=== PATIENT | female | born 1995 | race Caucasian/White ===

== ENCOUNTER → 2017-07-17 15:13 | Outpatient (CLI) | payer MEDICAID, SELFPAY ==
--- NOTE | 2017-07-17 15:31 | US_ITS ---
STUDY: RENAL ULTRASOUND - COMPLETE REASON FOR EXAM: Female, 21 years old. Flank pain. TECHNIQUE: Ultrasound evaluation of the kidneys was performed with real-time and static omalley-scale imaging. COMPARISON: CT scan 09/07/2014. FINDINGS: RIGHT KIDNEY: Normal location of the right kidney, which is normal in size. The right kidney measures 10.6 x 5.5 x 4.9 cm. There is a normal cortex of the right kidney. The renal cortex measures 2.4 cm. There is no right renal mass or cyst. There are no right renal calculi. There is no right hydronephrosis. DISTAL RIGHT URETER: There is non-visualization of the distal right ureter. There is no demonstrated right ureterovesical junction calculus. There is no demonstrated right ureteral jet. LEFT KIDNEY: Normal location of the left kidney, which is normal in size. The left kidney measures 12.6 x 5.5 x 4.9 cm. There is a normal cortex of the left kidney. The renal cortex measures 1.9 cm. There is no left renal mass or cyst. There are no left renal calculi. There is no left hydronephrosis. DISTAL LEFT URETER: There is non-visualization of the distal left ureter. There is no demonstrated left ureterovesical junction calculus. There is no demonstrated left ureteral jet. BLADDER: The urinary bladder has a volume of 35 ml. The empty urinary bladder has a volume of 1 ml. There is a normal wall thickness of the distended urinary bladder. There is no demonstrated mass within the urinary bladder. There are no demonstrated bladder calculi. Cholelithiasis is noted. US/Kidney and Bladder IMPRESSION: Normal ultrasound of the kidneys. Incompletely distended and suboptimally evaluated bladder. Cholelithiasis. Electronically Signed: Elvin Dominguez MD at 16:30 EST , Service support ,
== END ==
DX: K80.20 Calculus of gallbladder without cholecystitis without obstruction (principal); Z87.442 Personal history of urinary calculi
CPT/HCPCS: 76770

== ENCOUNTER → 2020-11-16 12:03 | Outpatient (CLI) | payer OTHER, SELFPAY ==
[2017-01-13 23:43] VITALS: BMI 38.9
[2020-11-16 12:49] LABS: Absolute Lymphocyte Count 3.21 X10^3/uL (0.83-4.51); Absolute Neutrophil Count 8.1 X10^3/uL (2.0-7.7); Basophil# 0.09 X10^3/uL; Basophil% 0.7 % (0-1); Eosinophil# 0.26 X10^3/uL; Eosinophils% 2.1 % (0-5); Hematocrit 45.6 % (37-47); Hemoglobin 15.4 g/dL (12.0-15.0); Lymphocyte # 3.21 X10^3/ul (0.83-4.51); Lymphocyte % 26.3 % (19-41); Mean Corp Hgb Conc 33.8 g/dL (32-36); Mean Corpuscular Hgb 28.8 pg (27.0-32.0); Mean Corpuscular Volume 85.4 fL (81-99); Mean Platelet Vol. 10.3 fl (6.2-12.0); Monocyte# 0.52 X10^3/uL; Monocyte% 4.3 % (0-10); NRBC Flagged by Analyzer 0 % (0-5); Neutrophil # 8.11 X10^3/uL (2.7-7.7); Neutrophil % 66.4 % (47-70); Platelet Count 327 K/mm3 (150-450); RBC Distribution Width CV 12.1 % (11.6-14.6); RBC Distribution Width SD 37.5 fl (35.1-43.9); Red Blood Count 5.34 M/mm3 (4.2-5.4); White Blood Count 12.2 K/mm3 (4.4-11.0)
[2020-11-16 13:05] LABS: AST(SGOT) 45 U/L (15-37); Alanine Aminotransfer ALT/SGPT 93 U/L (13-56); Alkaline Phosphatase 73 U/L (45-117); Anion Gap 8 (5-15); BUN 9 mg/dL (7-18); BUN/Creat Ratio 11.8 RATIO (10-20); Calcium,Total 9.1 mg/dL (8.5-10.1); Chloride 106 mmol/L (98-107); Creatinine, Serum 0.76 mg/dL (0.55-1.02); EST Glomerular Filtration Rate 97 mL/min (>60); Est Glom Filt Rate - Afr Amer 118 mL/min (>60); Glucose 89 mg/dL (74-106); Potassium 3.9 mmol/L (3.5-5.1); Sodium Level 139 mmol/L (136-145)
[2020-11-16 13:24] LABS: Hepatitis B Surface Antigen Non-Reactive (Nonreactive)
[2020-11-18 15:00] LABS: HIV-1 RNA by PCR, Quant. < 20 copies/mL (.)
[2020-11-22 12:08] LABS: Comment 1a (.)
[2020-11-22 13:26] LABS: Hepatitis B Core Ab Total Positive (Negative)
== END ==
PROVIDERS: Referring Provider Internal Medicine Infectious Disease; Visit Provider Internal Medicine Infectious Disease
DX: B18.2 Chronic viral hepatitis C (principal)
CPT/HCPCS: 36415; 80053; 85025; 86704; 87340; 87536; 87902

== ENCOUNTER 2020-12-06 06:55 | Emergency (ER) | payer OTHER, SELFPAY ==
[2020-12-06 06:56] VITALS: BP 142/79; PULSE 109; RESP 16; TEMP 36.8; O2SAT 99; BMI 44.4
--- NOTE | 2020-12-06 07:15 | ED.VIS.FEGU ---
HPI HPI - Female History of Present Illness Chief Complaint: Vag Bld, Preg Informant: patient Bleeding Issue: Positive for Vaginal bleeding Onset: Today Context: Sudden Onset Timing: Continuous Current Severity: Mild Maximum Severity: Mild Associated Symptoms Associated Symptoms: Negative for Dysuria and Hematuria Test: Positive Sexually: Positive for Active Control: No control P: 1 Ab: 1 Narrative Narrative: Patient presents with vaginal bleeding that began today. Patient states she did have a positive home test. Patient states her last normal menstrual period was 11/02/2020 through 11/09/2020. Patient denies any cramping. Patient states her bleeding is less than her normal menstrual periods. Patient denies any fevers or chills. Patient denies any dysuria or hematuria. Patient does not have an BAG TURNER. PFSH PFSH no medical history Home Medications No Known/Unobtainable [No Known Home Medications] 01/08/17 [History Last Taken Unknown] Allergy/AdvReac Type Severity Reaction Status Date / Time codeine Allergy Anaphylaxis Verified 12/06/20 06:58 no surgical history Social History Smoking Status: Current every day smoker tobacco type: cigarettes ROS ROS ED Constitutional Constitutional ED: Denies chills or fever(s) Eyes Eyes: Denies blurry vision or change in vision ENT ENT ED: Denies rhinorrhea or sore throat Cardiovascular Cardiovascular: Denies chest pain or palpitations Respiratory/Chest Respiratory/Chest: Denies cough or dyspnea Gastrointestinal Gastrointestinal: Denies nausea or vomiting Genitourinary Genitourinary ED: Denies dysuria or hematuria Musculoskeletal Musculoskeletal: Denies back pain or neck pain Integumentary Denies abscess or rash Neurologic Neurologic: Denies headache(s) or weakness Allergic/Immunologic Allergic/Immunologic ED: Denies mouth swelling or urticaria EXAM Physical Exam Const Vital Signs: 12/06/20 06:56 Temperature 98.3 F Temperature Source Oral Pulse Rate 109 H Respiratory Rate 16 Blood Pressure 142/79 H Blood Pressure Mean 100 Pulse Ox 99 Oxygen Delivery Method Room Air Positive well nourished, well developed and obese General Appearance ED: well developed Nutritional Appearance: obese HEENT Reports moist mucous membranes Neck supple and no JVD Resp normal respiratory effort and clear to auscultation bilaterally Cardio regular rate, regular rhythm and no murmurs GI normal to inspection, nondistended, normoactive bowel sounds, soft to palpation and non-tender Palpation: soft Extremity normal to inspection General Extremety ED: Negative for edema or tenderness General Extremity: Negative for edema Neuro oriented x3, CN's II-XII intact bilaterally and no sensory deficits noted Sensorium / Orientation: alert Motor Exam: strength 5/5 throughout Psych mental status grossly normal Skin no rashes or lesions noted MDM MDM MDM Narrative Medical decision making narrative: CBC was within normal limits. Comprehensive metabolic profile was normal. Urinalysis shows occult blood of 150 with 10-25 red blood cells. There is no evidence of urinary tract infection. Quantitative hCG was 2. Patient was advised of her findings. Patient was instructed to follow-up with her primary care physician in 5 to 7 days. Patient understood and was agreeable with the plan. All questions were answered. Lab Data Attestation: I reviewed the patient's lab results. Labs: Laboratory Results - last 24 hr 12/06/20 12/06/20 12/06/20 07:21 07:26 07:26 WBC 9.4 RBC 5.34 Hgb 15.5 H Hct 45.2 MCV 84.6 MCH 29.0 MCHC 34.3 RDW Std Deviation 37.9 RDW Coeff of Raysa 12.4 Plt Count 315 MPV 10.2 Immature Gran % (Auto) 0.400 Neut % (Auto) 51.4 Lymph % (Auto) 35.8 [place] % (Auto) 7.7 Eos % (Auto) 3.5 Baso % (Auto) 1.2 H Absolute Neuts (auto) 4.8 Absolute Lymphs (auto) 3.38 Nucleated RBC % 0 Sodium 138 Potassium 4.2 Chloride 108 H Carbon Dioxide 24.0 Anion Gap 6 BUN 13 Creatinine 0.91 Estim Creat Clear Calc 74.09 Est GFR (MDRD) Af Amer 96 Est GFR (MDRD) Non-Af 79 BUN/Creatinine Ratio 14.3 Glucose 107 H Calcium 9.4 Total Bilirubin 0.40 AST 26 ALT 44 Alkaline Phosphatase 76 Total Protein 7.8 Albumin 3.7 Globulin 4.1 Albumin/Globulin Ratio 0.9 HCG, Quant Urine Color Yellow Urine Clarity Sl. Cloudy Urine pH 6.5 Ur Specific [place] 1.015 Urine Protein Negative Urine Glucose (UA) Normal Urine Ketones Negative Urine Occult Blood 150 H Urine Nitrite Negative Urine Bilirubin Negative Urine Urobilinogen Normal Ur Leukocyte Esterase Negative Urine RBC 10-25 SEEN Urine WBC 0 SEEN Ur Squamous Epith Cells 0-5 SEEN Urine Bacteria 1+ Urine Mucus 0 SEEN 12/06/20 07:26 WBC RBC Hgb Hct MCV MCH MCHC RDW Std Deviation RDW Coeff of Raysa Plt Count MPV Immature Gran % (Auto) Neut % (Auto) Lymph % (Auto) [place] % (Auto) Eos % (Auto) Baso % (Auto) Absolute Neuts (auto) Absolute Lymphs (auto) Nucleated RBC % Sodium Potassium Chloride Carbon Dioxide Anion Gap BUN Creatinine Estim Creat Clear Calc Est GFR (MDRD) Af Amer Est GFR (MDRD) Non-Af BUN/Creatinine Ratio Glucose Calcium Total Bilirubin AST ALT Alkaline Phosphatase Total Protein Albumin Globulin Albumin/Globulin Ratio HCG, Quant 2 Urine Color Urine Clarity Urine pH Ur Specific [place] Urine Protein Urine Glucose (UA) Urine Ketones Urine Occult Blood Urine Nitrite Urine Bilirubin Urine Urobilinogen Ur Leukocyte Esterase Urine RBC Urine WBC Ur Squamous Epith Cells Urine Bacteria Urine Mucus Discharge Plan Triage Chief Complaint: Vag Bld, Preg ED Provider: Ildefonso Lloyd Dx/Rx/DC Orders Clinical Impression: Vaginal bleeding Instructions: ED Dysfunctional Uterine Bleeding Prescriptions: No Action No Known Home Medications RF: 0 Primary Care Provider: Care Physician,No Primary Referrals: Care Physician,No Primary [Primary Care Provider] - 3-5 Days Activity Restrictions/Additional Instructions: Follow-up with your primary care physician or BAG TURNER in 5 to 7 days for reevaluation. Disposition Disposition: Home, Self Care
[2020-12-06 07:26] LABS: Mucous, Urine 0 SEEN /hpf (<or=2+); White Blood Cells 0 SEEN /hpf (0-5)
[2020-12-06 07:39] LABS: Absolute Lymphocyte Count 3.38 X10^3/uL (0.83-4.51); Absolute Neutrophil Count 4.8 X10^3/uL (2.0-7.7); Basophil# 0.11 X10^3/uL; Basophil% 1.2 % (0-1); Eosinophil# 0.33 X10^3/uL; Eosinophils% 3.5 % (0-5); Hematocrit 45.2 % (37-47); Hemoglobin 15.5 g/dL (12.0-15.0); Lymphocyte # 3.38 X10^3/ul (0.83-4.51); Lymphocyte % 35.8 % (19-41); Mean Corp Hgb Conc 34.3 g/dL (32-36); Mean Corpuscular Volume 84.6 fL (81-99); Mean Platelet Vol. 10.2 fl (6.2-12.0); Monocyte# 0.73 X10^3/uL; Monocyte% 7.7 % (0-10); NRBC Flagged by Analyzer 0 % (0-5); Neutrophil # 4.84 X10^3/uL (2.7-7.7); Neutrophil % 51.4 % (47-70); Platelet Count 315 K/mm3 (150-450); RBC Distribution Width CV 12.4 % (11.6-14.6); RBC Distribution Width SD 37.9 fl (35.1-43.9); Red Blood Count 5.34 M/mm3 (4.2-5.4); White Blood Count 9.4 K/mm3 (4.4-11.0)
[2020-12-06 07:51] LABS: Color, Urine Yellow (Yellow); Glucose, Dipstick Normal (Normal); Ketone-Dipstick Negative (Negative); Leukocyte Esterase-Dipstick Negative /ul (Negative); Nitrite-Dipstick Negative (Negative); Occult Blood-Urine 150 /ul (Negative); Protein-Dipstick Negative (Negative); Specific Gravity, Urine 1.015 (1.002-1.030); Urine Bilirubin Dipstick Negative (Negative); Urine Clarity Sl. Cloudy (Clear); Urine Urobilinogen Normal (Normal); Urine pH 6.5 (5.0 - 8.0)
[2020-12-06 07:52] LABS: ALB/GLOB Ratio 0.9 RATIO (0.9-2.4); AST(SGOT) 26 U/L (15-37); Alanine Aminotransfer ALT/SGPT 44 U/L (13-56); Albumin, Serum 3.7 g/dL (3.2-5.0); Alkaline Phosphatase 76 U/L (45-117); Anion Gap 6 (5-15); BUN 13 mg/dL (7-18); BUN/Creat Ratio 14.3 RATIO (10-20); Calcium,Total 9.4 mg/dL (8.5-10.1); Chloride 108 mmol/L (98-107); Creatinine, Serum 0.91 mg/dL (0.55-1.02); EST Glomerular Filtration Rate 79 mL/min (>60); Est Glom Filt Rate - Afr Amer 96 mL/min (>60); Estimated Creatinine Clearance 74.09 ml/min; Globulin 4.1 g/dL (2.2-4.2); Glucose 107 mg/dL (74-106); Potassium 4.2 mmol/L (3.5-5.1); Protein, Total 7.8 g/dL (6.4-8.2); Sodium Level 138 mmol/L (136-145)
[2020-12-06 07:59] LABS: hCG Titer Quant., Serum 2 mIU/mL (1-3)
[2020-12-06 08:00] LABS: Bacteria 1+ /hpf (None Seen); Red Blood Cells-Urine 10-25 SEEN /hpf (0-5); Squamous Epithelial Cells - UA 0-5 SEEN /hpf (5-10)
[2020-12-06 08:11] VITALS: BP 134/66; PULSE 86; RESP 15; O2SAT 99
== END 2020-12-06 08:10 | disposition home or self-care (01) ==
PROVIDERS: Emergency Provider Emergency Medicine
DX: O46.90 Antepartum hemorrhage, unspecified, unspecified trimester (principal); F17.210 Nicotine dependence, cigarettes, uncomplicated; Z3A.00 Weeks of gestation of pregnancy not specified
CPT/HCPCS: 80053; 81001; 84702; 85025; 99283; A4216

== ENCOUNTER → 2020-12-27 15:40 | Outpatient (CLI) | payer OTHER, SELFPAY ==
[2020-12-06 06:56] VITALS: BMI 44.4
[2021-01-02 14:09] LABS: Comment 1a (.); HCV Quant. RNA PCR 150000 IU/mL (.)
[2021-01-02 14:16] LABS: HCV log 10 5.176 (.); Hepatitis A AB, Total Negative (Negative)
== END ==
LOC: LAB 15:41
PROVIDERS: Visit Provider Internal Medicine Infectious Disease
DX: B18.2 Chronic viral hepatitis C (principal)
CPT/HCPCS: 36415; 86708; 87522; 87902

== ENCOUNTER 2021-05-28 16:31 | Outpatient (CLI) | payer OTHER, SELFPAY ==
[2021-05-28 16:59] VITALS: BP 111/74; PULSE 85; RESP 16; TEMP 36.4; O2SAT 99; BMI 43.9
[2021-05-28] MEDS: 0.9% Saline Lock 10 ML Syringe IV (17:06)
[2021-05-28 17:51] VITALS: BP 117/68; PULSE 82; RESP 16; TEMP 37; O2SAT 100
[2021-05-28 18:39] VITALS: BP 101/63; PULSE 80; RESP 16; TEMP 37; O2SAT 98
== END 2021-05-28 18:44 | disposition home or self-care (01) ==
LOC: MS3OUT 16:31 → MS3 16:32
PROVIDERS: Referring Provider Nurse Practitioner Adult Health; Visit Provider Nurse Practitioner Adult Health
DX: Z23 Encounter for immunization (principal); U07.1 COVID-19; O98.511 Other viral diseases complicating pregnancy, first trimester
CPT/HCPCS: J7050; M0245; Q0245; A4216

== ENCOUNTER 2021-11-25 18:50 | Inpatient (IN) | payer OTHER, MEDICAID, SELFPAY ==
[2021-11-25] VITALS (48 sets, daily range): BP systolic 108–137; BP diastolic 57–85; PULSE 68–111; TEMP 36.5–36.6; O2SAT 95–99; BMI 43.2
--- NOTE | 2021-11-25 19:42 | HP.PCM.OB_ITS ---
HPI - General General Date of Admission: 11/25/21 HPI Narrative KATIANA WAKEFIELD, is a 26 F at 39.2 weeks gestation who presents for induction of labor for obesity. complicated by chronic hepatitis C, tobacco use, and history of drug use (Sober 4 years). Maternal Data Information EBONY Calculator Estimated Delivery Date Method Current WG Current Estimate 11/30/21 Manual 39w 3d Final EBONY: 11/30/21 Final EBONY Source: LMP PFSH PFSH Medical History no medical history Home Medications prenat.vits,shana,[id number] 1 tab PO DAILY Check with primary doctor 05/28/21 [History Last Taken Unknown] Allergy/AdvReac Type Severity Reaction Status Date / Time codeine Allergy Anaphylaxis Verified 11/25/21 19:42 Surgical History no surgical history Social History Smoking Status: Current every day smoker tobacco type: cigarettes History Elective abortions Hx Para 1 Spontaneous abortions Hx # Term Pregnancies Ectopic pregnancies Hx # Pregnancies Multiple births # of living children Visit Details OB Flowsheet Initial Weight: Not Recorded Date -?-?-?-?-?-?-?-?-?-?-?-?- EGA Weight BP Urine Prot -?-?-?-?-?-?-?-?--?-?-?-?- Glucose FHR FuHt Pres Dilation -?-?-?-?-?-?-?-?-?-?-?-?- Effaced St Visit Note 11/25/21 -?-?-?-?-?-?-?-?-?-?-?-?- 39w 2d 244 lb 125/75 115/81 119/82 132/85 131/72 137/82 130/76 124/66 119/61 122/62 120/76 119/63 121/57 125/71 119/67 117/67 120/69 121/64 119/65 122/77 123/73 117/67 108/71 114/62 124/65 117/74 121/77 118/78 136/84 123/67 122/66 122/67 113/60 -?-?-?-?-?-?-?-?-?-?-?-?- -?-?-?-?-?-?-?-?-?-?-?-?- ROS Eyes Eyes: Denies blurry vision, change in vision or spots in vision ENT HEENT: Denies dizziness or headache(s) Cardiovascular Cardiovascular: Denies abdominal pain, chest pain or dyspnea Respiratory/Chest Respiratory/Chest: Denies cough, dyspnea, shortness of breath at rest or shortness of breath with exertion Gastrointestinal Gastrointestinal: Denies abdominal pain, diarrhea or vomiting Genitourinary Genitourinary: Denies change in urinary stream, difficulty urinating or dysuria Musculoskeletal Musculoskeletal: Reports none Integumentary Integumentary: Denies rash Neurologic Neurologic: Denies dizziness, headache(s), memory loss or weakness Psychiatric Psychiatric: Reports none Vital Signs Vital Signs Vital Signs: 11/25/21 19:27 11/25/21 19:27 11/25/21 19:32 Temperature Temperature Source Pulse Rate 101 H 96 Blood Pressure BP Systolic BP Diastolic Pulse Ox 97 11/25/21 19:32 11/25/21 19:35 11/25/21 19:35 Temperature Temperature Source Pulse Rate 94 Blood Pressure 125/75 H BP Systolic 125 BP Diastolic 75 Pulse Ox 97 11/25/21 19:37 11/25/21 19:37 11/25/21 19:39 Temperature 97.7 F L Temperature Source Pulse Rate 89 Blood Pressure BP Systolic BP Diastolic Pulse Ox 98 11/25/21 19:35 11/25/21 19:35 11/25/21 19:35 Temperature 97.7 F L Temperature Source Temporal Pulse Rate Blood Pressure BP Systolic BP Diastolic Pulse Ox 98 Physical Exam Const alert, oriented x3 and no apparent distress General Appearance: cooperative Orientation / Consciousness: awake Exam Limitations: no limitations HEENT normocephalic Head and Scalp: normal to inspection Eyes General Eye: normal appearance of both eyes Neck full ROM and no lymphadenopathy Lymph Lymphatic: no lymphadenopathy noted Chest inspection of chest normal Resp normal respiratory effort, normal air movement and clear to auscultation bilaterally Effort and Inspection: able to speak in complete sentences and symmetric chest movement Cardio regular rate and regular rhythm GI normal to inspection, nondistended, normoactive bowel sounds Back/Spine normal ROM Extremity full ROM and no calf tenderness Skin no rashes or lesions noted General Skin Exam: no breakdown Neuro oriented x3 and CN's II-XII intact bilaterally Psych mental status grossly normal and thought process normal Labs Labs Labs: Blood Type O POSITIVE Antibody Screen NEGATIVE Hct 40.7 % (37-47) Hgb 14.2 g/dL (12.0-15.0) Hep Bs Antigen Non-Reactive (Nonreactive) Rhogam given: No Miscellaneous Test O+ Rubella- immune RPR- NR HIV- NR GBS negative Assessment & Plan (1) 39 weeks gestation of : (2) Obesity affecting : (3) Tobacco use affecting , antepartum: (4) Hep C w/o coma, chronic: (5) History of drug use: PLAN: Plan CE 2.5/70/-2 Admit to labor and delivery Routine labs Start IV and titrate per orders GBS negative Meléndez bulb placed without difficulty Epidural when indicated Dr. Estevez notified of admission and is collaborating physician
[2021-11-25] MEDS: Lactated Ringers 1,000 ML 50 ML IV (19:50)
[2021-11-25 19:51] LABS: Absolute Lymphocyte Count 3.52 X10^3/uL (0.83-4.51); Absolute Neutrophil Count 9.1 X10^3/uL (2.0-7.7); Basophil# 0.07 X10^3/uL; Basophil% 0.5 % (0-1); Eosinophil# 0.15 X10^3/uL; Eosinophils% 1.1 % (0-5); Hematocrit 40.7 % (37-47); Hemoglobin 14.2 g/dL (12.0-15.0); Lymphocyte # 3.52 X10^3/ul (0.83-4.51); Lymphocyte % 26.1 % (19-41); Mean Corp Hgb Conc 34.9 g/dL (32-36); Mean Corpuscular Hgb 29.8 pg (27.0-32.0); Mean Corpuscular Volume 85.5 fL (81-99); Monocyte# 0.63 X10^3/uL; Monocyte% 4.7 % (0-10); NRBC Flagged by Analyzer 0 % (0-5); Neutrophil # 9.05 X10^3/uL (2.7-7.7); Neutrophil % 67.2 % (47-70); Platelet Count 303 K/mm3 (150-450); RBC Distribution Width SD 40.1 fl (35.1-43.9); Red Blood Count 4.76 M/mm3 (4.2-5.4); White Blood Count 13.5 K/mm3 (4.4-11.0)
[2021-11-25] MEDS: fentaNYL-bupivacaine (epidural) 100 ML BAG EPIDURAL (20:15)
[2021-11-25] MEDS: 0.9% Normal Saline Single 100 ML IV.SOLN. INTRA-UTER (20:17)
[2021-11-25] MEDS: Oxytocin 30 units/NS 500 ml 30 UNITS/500 ML IV.SOLN IV (21:04)
[2021-11-25] MEDS: LACTATED RINGERS 500 ML 999 ML IV (21:12)
[2021-11-25 22:03] LABS: Amphetamine Urine VISTA NEGATIVE (<1000 ng/mL); Barbiturate Urine VISTA NEGATIVE (< 200 ng/mL); Benzodiazepine Urine VISTA NEGATIVE (< 200 ng/mL); Cocaine Urine VISTA NEGATIVE (< 300 ng/mL); Ecstacy Urine VISTA NEGATIVE (< 500 ng/mL); Methadone Urine VISTA NEGATIVE (< 300 ng/mL); PCP Urine VISTA NEGATIVE (< 25 ng/mL); THC Urine VISTA NEGATIVE (< 50 ng/mL); Vista UDS pH Range 6
[2021-11-26] VITALS (31 sets, daily range): BP systolic 113–136; BP diastolic 55–84; PULSE 64–141; RESP 16–18; TEMP 36.1–36.8; O2SAT 96–99
[2021-11-26] MEDS: Lactated Ringers 1,000 ML 200 ML IV (02:27)
[2021-11-26] MEDS: fentaNYL-bupivacaine (epidural) 100 ML BAG EPIDURAL (02:27)
[2021-11-26] MEDS: LACTATED RINGERS 500 ML 999 ML IV (02:32)
[2021-11-26] MEDS: Oxytocin 30 units/NS 500 ml 30 UNITS/500 ML IV.SOLN 999 UNITS IV (04:10)
--- NOTE | 2021-11-26 05:06 | EX.PCM.OBRPT ---
Assessment & Plan (1) Hep C w/o coma, chronic: (2) (spontaneous vaginal delivery): (3) Tobacco use affecting , antepartum: Maternal Data Information EBONY Calculator Estimated Delivery Date Method Current WG Current Estimate 11/30/21 Manual 39w 3d Vaginal Delivery Maternal Presentation Maternal Presentation: Medically Indicated Induction Maternal Presentation: at 39.2 weeks gestation for induction of labor for obesity (BMI >40). Type of Induction: Pitocin, Meléndez Bulb and Amniotomy Medical Reason for Induction: Maternal Medical Condition: list: (Obesity, Chronic Hep C) Operative Information Date of Procedure: 11/26/21 Pre-Operative Diagnosis: Term gestation, Obesity, Chronic Hep C Post-Operative Diagnosis: Same, live female infant Surgery / Procedure Performed: Spontaneous Vaginal Delivery Type of Anesthesia: Epidural Drain: Meléndez to straight drain Estimated Blood Loss: 250 Time of Delivery: 04:03 Findings Description of Procedure: Called to patient's room for Cat. 2 tracing. CE 8/95/0 with bulging bag of fluid. AROM for small amount of clear fluid. Patient quickly progressed to complete dilation. With minimal maternal effort, head delivered. Tight nuchal cord noted that was unable to be reduced. Anterior shoulder then remainder of infant body delivered via somersault maneuver with next push. Cord around infant body as well. Large amount of amniotic fluid and terminal meconium came out after infant. Due to color and tone, cord immediately clamped and cut. Cord blood collected and sent. Infant handed off to nursery staff. Pitocin IV started for active management of the third stage of labor. Placenta delivered spontaneously and intact. Vagina and perineum intact. Vaginal sweep completed by me. Hemostasis obtained. EBL 250cc. APGARS 6/9. Dr. Estevez notified of delivery. Presentation: Vertex Amniotic Membrane Rupture Type: Artificial Time of Membrane Rupture: 0345 Amniotic Fluid Description: Clear Placental Delivery Description: Spontaneous Placenta Disposition: [facility] Cord Vessel Description: 3 Vessels Cord Entanglement: Around neck x 1, tight and - (Around body x 1) Nuchal Cord Compression: Without compression Cord Gases: ABG A Gender: Female (1 minute): 6 (5 minute): 9 Delayed Cord Clamping: No Post Vaginal Delivery Medications Given After Delivery: IV Pitocin Episiotomy Description: None Laceration: None Complication Complications: None
[2021-11-26] MEDS: Naproxen 500 MG Tablet PO (16:06)
[2021-11-27] VITALS (7 sets, daily range): BP systolic 118–122; BP diastolic 74–78; PULSE 69–86; RESP 18; TEMP 36.5
[2021-11-27] MEDS: Acetaminophen 500 MG Tablet 1000 MG PO (01:57)
--- NOTE | 2021-11-27 07:47 | PCM.PN.OB ---
Subjective Subjective Patient seen at bedside. Feeling good. Denies any pain. Decided to stop due to HEP C positive and viral load is high. Ambulating and voiding without difficulty. Desires discharge home today. Wants PP tubal at 6 weeks. Objective Data Objective Data Vital Signs: Vital Signs Temp Pulse Resp BP Pulse Ox 98.1 F 69 18 118/76 99 11/26/21 21:05 11/27/21 03:46 11/27/21 03:45 11/27/21 03:46 11/26/21 16:08 Oxygen Delivery Method Room Air Weight: 244 lb Body Mass Index (BMI) 43.2 Intake & Output: Intake and Output for Last 24 Hours 11/25/21 11/26/21 11/27/21 23:59 23:59 23:59 Intake Total 573.66 / 573.66 2178.70 / 2178.70 Output Total 2300 / 2300 Balance 573.66 / 573.66 -121.30 / -121.30 Lab / Micro Data Result Diagrams: 11/25/21 19:40 Micro: Microbiology 11/25/21 19:40 Nasal Secretion SARS-CoV-2 Antigen (Rapid) - Final ROS Eyes Eyes: Denies blurry vision, change in vision or spots in vision ENT HEENT: Denies dizziness or headache(s) Cardiovascular Cardiovascular: Denies abdominal pain, chest pain or dyspnea Respiratory/Chest Respiratory/Chest: Denies cough, dyspnea, shortness of breath at rest or shortness of breath with exertion Gastrointestinal Gastrointestinal: Denies abdominal pain, diarrhea or vomiting Genitourinary Genitourinary: Denies change in urinary stream, difficulty urinating or dysuria Musculoskeletal Musculoskeletal: Reports none Integumentary Integumentary: Denies rash Neurologic Neurologic: Denies dizziness, headache(s), memory loss or weakness Physical Exam Const alert and no apparent distress General Appearance: cooperative and comfortable Exam Limitations: no limitations HEENT normocephalic Eyes General Eye: normal appearance of both eyes Neck full ROM General: normal visual inspection Chest Chest: symmetrical chest wall rise Resp normal respiratory effort and normal air movement Effort and Inspection: symmetric chest movement Auscultation: clear to auscultation bilaterally Cardio regular rate and regular rhythm GI normal to inspection, nondistended, normoactive bowel sounds Back/Spine normal ROM Extremity full ROM and no calf tenderness General Extremity: normal exam except as noted Skin no rashes or lesions noted Neuro CN's II-XII intact bilaterally Psych mental status grossly normal Assessment & Plan (1) (spontaneous vaginal delivery): (2) Hep C w/o coma, chronic: (3) Tobacco use affecting , antepartum: (4) Obesity affecting : PLAN: Plan PPD 2 Routine care Pain control Discharge home with follow up in office
--- NOTE | 2021-11-27 07:54 | DCINST_ITS ---
Discharge Instructions Diet Discharge Diet: No restrictions Activity Discharge Activity: May Drive and May Shower May resume sexual activity in: 6-8 weeks Dressing / Incision Call your doctor if you observe: Fever of 101 or Higher, Inability to urinate, Using more than 1 pad per hour, Shortness of breath, Calf discomfort and Uncontrolled pain Follow Up Care Please Follow Up With: Shawanda Kumari CNM When: 2 weeks / 6 weeks - see physician to discuss tubal ligation Test Results: Test results from this visit will be discussed in further detail at your follow- up appointment, if applicable. Discharge Plan Admission Admit Date/Time: 11/25/21 18:50 Primary Reason for Your Visit: Labor and Delivery Attending Provider: Shawanda Kumari Primary Care Provider: Care Physician,No Primary Discharge Orders/Prescriptions Prescriptions: Continued prenat.vits,shana,[id number] Tablet 1 tab PO DAILY Referrals / Follow Up: Care Physician,No Primary [Primary Care Provider] - Disposition Disposition (needs filled in before D/C Order can be placed): Home, Self Care
== END 2021-11-27 11:35 | disposition home or self-care (01) | DRG 806 ==
PROVIDERS: Admitting Provider Advanced Practice Midwife; Visit Provider Advanced Practice Midwife
DX: O99.214 Obesity complicating childbirth (principal); Z37.0 Single live birth; O98.42 Viral hepatitis complicating childbirth; E66.9 Obesity, unspecified; B18.2 Chronic viral hepatitis C; F17.210 Nicotine dependence, cigarettes, uncomplicated; Z3A.39 39 weeks gestation of pregnancy; O99.334 Smoking (tobacco) complicating childbirth; O69.1XX0 Labor and delivery complicated by cord around neck, with compression, not applicable or unspecified
CPT/HCPCS: 59025; 59050; 80307; 85025; 86850; 86900; 86901; 87811; 99218; 99406; J7120; G0378